=== PATIENT | male | born 1950 | race Hispanic/Latino ===

== ENCOUNTER 2020-09-27 22:06 | Emergency (ER) | payer MEDICARE ==
[~2020-09-27] VITALS: Ht 185.4 cm; Wt 87.1 kg
[2020-09-27 23:14] VITALS: BP 110/73
[2020-09-27 23:14] LABS: CLARITY,URINE SL CLOUDY (CLEAR); COLOR,URINE YELLOW (YELLOW); KETONES,URINE NEGATIVE (NEGATIVE); LEUKOCYTE ESTERASE ,URINE NEGATIVE (NEGATIVE); NITRITE,URINE NEGATIVE (NEGATIVE); PROTEIN,URINE DIPSTICK NEGATIVE (NEGATIVE); URINE UROBILINOGEN 0.2 mg/dL (0.2 - 1)
[2020-09-27 23:24] LABS: BACTERIA,URINE FEW /HPF; EPITHELIAL CELLS,URINE FEW /LPF; RBC,URINE 21-50 /HPF (0-5)
== END 2020-09-27 23:14 | disposition home or self-care (01) ==
LOC: EDBD 22:06 → ER 22:09
DX: R33.9 Retention of urine, unspecified (principal)
CPT/HCPCS: 51700; 81001; 87086; 99282

== ENCOUNTER 2021-02-17 13:47 | Emergency (ER) | payer MEDICARE ==
[~2021-02-17] VITALS: Ht 185.4 cm; Wt 87.1 kg
[2021-02-17 15:09] LABS: CLARITY,URINE HAZY (CLEAR); COLOR,URINE YELLOW (YELLOW); KETONES,URINE NEGATIVE (NEGATIVE); LEUKOCYTE ESTERASE ,URINE LARGE (NEGATIVE); NITRITE,URINE NEGATIVE (NEGATIVE); PROTEIN,URINE DIPSTICK 2+ (NEGATIVE); URINE UROBILINOGEN 0.2 mg/dL (0.2 - 1)
[2021-02-17 15:20] LABS: AMORPHOUS SEDIMENT,URINE FEW (FEW); BACTERIA,URINE MODERATE /HPF; EPITHELIAL CELLS,URINE FEW /LPF; MUCUS,URINE MODERATE (RARE); WBC,URINE (MAN) >50 /HPF (0-5)
== END 2021-02-17 16:04 | disposition home or self-care (01) ==
LOC: ER 14:05
DX: Z46.6 Encounter for fitting and adjustment of urinary device (principal); R33.9 Retention of urine, unspecified; N39.0 Urinary tract infection, site not specified
CPT/HCPCS: 51700; 81001; 87086; 87186; 99282

== ENCOUNTER 2021-05-06 14:26 | Emergency (ER) | payer MEDICARE ==
[~2021-05-06] VITALS: Ht 185.4 cm; Wt 87.1 kg
[2021-05-06 16:25] LABS: CLARITY,URINE CLOUDY (CLEAR); COLOR,URINE YELLOW (YELLOW); KETONES,URINE NEGATIVE (NEGATIVE); LEUKOCYTE ESTERASE ,URINE MODERATE (NEGATIVE); NITRITE,URINE NEGATIVE (NEGATIVE); PROTEIN,URINE DIPSTICK 1+ (NEGATIVE); URINE UROBILINOGEN 0.2 mg/dL (0.2 - 1)
[2021-05-06 16:35] LABS: WBC,URINE (MAN) >50 /HPF (0-5)
[2021-05-06 16:36] LABS: BACTERIA,URINE MANY /HPF; EPITHELIAL CELLS,URINE FEW /LPF; RBC,URINE 21-50 /HPF (0-5)
== END 2021-05-06 17:24 | disposition home or self-care (01) ==
LOC: ER 15:45
DX: N39.0 Urinary tract infection, site not specified (principal); R33.9 Retention of urine, unspecified; Z48.03 Encounter for change or removal of drains; Z46.6 Encounter for fitting and adjustment of urinary device
CPT/HCPCS: 51700; 81001; 87086; 87186; 99283

== ENCOUNTER 2021-06-16 05:57 | Emergency (ER) | payer MEDICARE ==
[~2021-06-16] VITALS: Ht 185.4 cm; Wt 87.1 kg
[2021-06-16 06:48] LABS: CLARITY,URINE TURBID (CLEAR); COLOR,URINE YELLOW (YELLOW); LEUKOCYTE ESTERASE ,URINE LARGE (NEGATIVE); NITRITE,URINE NEGATIVE (NEGATIVE)
[2021-06-16 06:49] LABS: KETONES,URINE NEGATIVE (NEGATIVE); PROTEIN,URINE DIPSTICK 2+ (NEGATIVE); URINE UROBILINOGEN 0.2 mg/dL (0.2 - 1)
[2021-06-16 07:29] LABS: BACTERIA,URINE MANY /HPF; EPITHELIAL CELLS,URINE FEW /LPF; RBC,URINE >50 /HPF (0-5); TRIPLE PHOSPHATE CRYSTAL,UR MODERATE (FEW); WBC,URINE (MAN) >50 /HPF (0-5)
== END 2021-06-16 06:38 | disposition home or self-care (01) ==
LOC: ER 06:01
DX: R33.9 Retention of urine, unspecified (principal); N39.0 Urinary tract infection, site not specified
CPT/HCPCS: 51700; 81001; 87086; 87186; 99283

== ENCOUNTER 2021-07-03 05:07 | Emergency (ER) | payer MEDICARE ==
[~2021-07-03] VITALS: Ht 185.4 cm; Wt 87.1 kg
== END 2021-07-03 06:33 | disposition home or self-care (01) ==
LOC: ER 05:15
DX: R33.9 Retention of urine, unspecified (principal); Z46.6 Encounter for fitting and adjustment of urinary device
CPT/HCPCS: 51700; 99283

== ENCOUNTER 2021-07-03 19:41 | Emergency (ER) | payer MEDICARE ==
[~2021-07-03] VITALS: Ht 185.4 cm; Wt 87.1 kg
== END 2021-07-03 23:00 | disposition home or self-care (01) ==
LOC: ER 19:53
DX: T83.091A Other mechanical complication of indwelling urethral catheter, initial encounter (principal); Y84.6 Urinary catheterization as the cause of abnormal reaction of the patient, or of later complication, without mention of misadventure at the time of the procedure

== ENCOUNTER 2021-07-18 08:42 | Emergency (ER) | payer MEDICARE ==
[~2021-07-18] VITALS: Ht 185.4 cm; Wt 87.1 kg
[2021-07-18 08:59] LABS: BASOPHILS % 0.5 % (0.0-1.0); EOSINOPHILS # (AUTO) 0.1 (0.0-0.4); HEMOGLOBIN 14.2 g/dL (14.0-18.0); LYMPHOCYTES # (AUTO) 1.7 (1.0-3.2); LYMPHOCYTES % 28.9 % (18.0-39.1); MEAN CORPUSCULAR HEMOGLOBIN 29.2 pg (28-32); MEAN CORPUSCULAR HGB CONC 32.3 g/dL (31-35); MEAN CORPUSCULAR VOLUME 90.3 fL (81-99); MONOCYTES # (AUTO) 0.4 (0.2-0.8); MONOCYTES % 6.9 % (4.4-11.3); NEUTROPHILS # (AUTO) 3.6 (2.1-6.9); NEUTROPHILS % 60.7 % (38.7-80.0); PLATELET COUNT 294 x10e3/uL (140-360); RED BLOOD COUNT 4.87 x10e6/uL (4.3-5.7); RED CELL DISTRIBUTION WIDTH 11.8 % (11.7-14.4)
[2021-07-18 09:16] LABS: ALBUMIN 3.6 g/dL (3.5-5.0); ALBUMIN/GLOBULIN RATIO 0.9 (0.8-2.0); ANION GAP 9.4 mmol/L (8-16); CALCIUM 9.4 mg/dL (8.4-10.2); CREATININE, SERUM 0.99 mg/dL (0.72-1.25); POTASSIUM 3.4 mmol/L (3.5-5.1)
[2021-07-18 09:31] LABS: CLARITY,URINE CLOUDY (CLEAR); COLOR,URINE YELLOW (YELLOW); KETONES,URINE NEGATIVE (NEGATIVE); LEUKOCYTE ESTERASE ,URINE LARGE (NEGATIVE); NITRITE,URINE NEGATIVE (NEGATIVE); PROTEIN,URINE DIPSTICK 1+ (NEGATIVE); URINE UROBILINOGEN 0.2 mg/dL (0.2 - 1)
[2021-07-18 09:48] LABS: BACTERIA,URINE MODERATE /HPF; MUCUS,URINE FEW (RARE); RBC,URINE 21-50 /HPF (0-5); WBC,URINE (MAN) 21-50 /HPF (0-5)
[2021-07-18] MEDS ORDERED: IOPAMIDOL 370 MG/ML 200 ML INFUS..BTL INJ ONE (10:19)
[2021-07-18] MEDS ORDERED: SODIUM CHLORIDE 0.9% 250ML 250 ML ONE (10:19)
[2021-07-18] MEDS ORDERED: MEROPENEM 1 GM in SODIUM CHLORIDE 0.9% 100 ML 100 ML IV ONE (11:00)
[2021-07-18] MEDS ORDERED: SODIUM CHLORIDE 0.9% 1000ML 1,000 ML IV ONE (11:15)
[2021-07-18] MEDS ORDERED: MEROPENEM 1 GM in SODIUM CHLORIDE 0.9% 100 ML IV ONE (11:15)
== END 2021-07-18 12:23 | disposition home or self-care (01) ==
LOC: ER 08:56
DX: Z46.6 Encounter for fitting and adjustment of urinary device (principal); R33.9 Retention of urine, unspecified; N39.0 Urinary tract infection, site not specified
CPT/HCPCS: 36415; 51702; 74178; 80053; 81001; 85025; 87086; 87186; 99284; J2185; J7030; J7050 ×2; Q9967; 51700

== ENCOUNTER 2021-08-08 00:24 | Emergency (ER) | payer MEDICARE ==
[~2021-08-08] VITALS: Ht 185.4 cm; Wt 87.1 kg
== END 2021-08-08 01:05 | disposition home or self-care (01) ==
LOC: ER 00:30
DX: Z46.6 Encounter for fitting and adjustment of urinary device (principal); R33.9 Retention of urine, unspecified
CPT/HCPCS: 51700; 87086; 87186; 99282

== ENCOUNTER 2021-09-02 18:58 | Emergency (ER) | payer MEDICARE ==
[~2021-09-02] VITALS: Ht 185.4 cm; Wt 87.1 kg
[2021-09-02 19:35] VITALS: BP 136/88
== END 2021-09-02 19:40 | disposition home or self-care (01) ==
LOC: ER 19:08
DX: Z46.6 Encounter for fitting and adjustment of urinary device (principal); R33.9 Retention of urine, unspecified
CPT/HCPCS: 51700

== ENCOUNTER 2021-09-17 00:05 | Emergency (ER) | payer MEDICARE ==
[~2021-09-17] VITALS: Ht 185.4 cm; Wt 87.1 kg
== END 2021-09-17 01:00 | disposition home or self-care (01) ==
LOC: ER 00:08
DX: Z46.6 Encounter for fitting and adjustment of urinary device (principal); R33.9 Retention of urine, unspecified
CPT/HCPCS: 51700; 99282

== ENCOUNTER 2021-09-30 20:52 | Emergency (ER) | payer MEDICARE ==
[~2021-09-30] VITALS: Ht 185.4 cm; Wt 83.9 kg
[2021-09-30 21:47] VITALS: BP 145/90
[2021-10-05] MEDS ORDERED: VITAMIN D310 MCG PO (09:31)
[2021-10-05] MEDS ORDERED: FINASTERIDE5 MG PO (09:31)
[2021-10-05] MEDS ORDERED: FLOMAX0.4 MG PO (09:31)
== END 2021-09-30 21:48 | disposition home or self-care (01) ==
LOC: ER 21:02
DX: Z46.6 Encounter for fitting and adjustment of urinary device (principal); R33.9 Retention of urine, unspecified; N40.1 Benign prostatic hyperplasia with lower urinary tract symptoms
CPT/HCPCS: 51700; 99282

== ENCOUNTER 2021-10-08 05:59 | Inpatient (IN) | payer MEDICARE ==
[2021-10-05 13:23] LABS: BASOPHILS % 0.5 % (0.0-1.0); EOSINOPHILS # (AUTO) 0.2 (0.0-0.4); EOSINOPHILS % 2.7 % (0.0-6.0); HEMATOCRIT 42.7 % (38.2-49.6); HEMOGLOBIN 14.5 g/dL (14.0-18.0); LYMPHOCYTES # (AUTO) 1.8 (1.0-3.2); LYMPHOCYTES % 33.5 % (18.0-39.1); MEAN CORPUSCULAR HEMOGLOBIN 30.6 pg (28-32); MEAN CORPUSCULAR VOLUME 90.1 fL (81-99); MONOCYTES # (AUTO) 0.4 (0.2-0.8); MONOCYTES % 7.6 % (4.4-11.3); NEUTROPHILS # (AUTO) 3.1 (2.1-6.9); NEUTROPHILS % 55.5 % (38.7-80.0); PLATELET COUNT 219 x10e3/uL (140-360); RED BLOOD COUNT 4.74 x10e6/uL (4.3-5.7); RED CELL DISTRIBUTION WIDTH 12.3 % (11.7-14.4)
[2021-10-05 13:38] LABS: ANION GAP 12.4 mmol/L (8-16); CALCIUM 9.8 mg/dL (8.4-10.2); CREATININE, SERUM 1.1 mg/dL (0.72-1.25); POTASSIUM 4.4 mmol/L (3.5-5.1)
[~2021-10-08] VITALS: Ht 185.4 cm; Wt 83.9 kg
[~2021-10-08 05:59] MED LIST: FINASTERIDE5 MG PO; FLOMAX0.4 MG PO; GENTAMICIN 80MG/NS 100 ML 200 ML IV ONE; PIPERACILLIN/TAZOBACTAM 3.375 GM VIAL ONE; SODIUM CHLORIDE 0.9% 1000ML 1,000 ML ONE; VITAMIN D310 MCG PO
[2021-10-08] MEDS ORDERED: IOPAMIDOL 300MG/ML 50ML INFUS..BTL IV ONE (06:16)
[2021-10-08] MEDS ORDERED: B&O 60MG R/S 60 MG SUPP PR ONE (06:16)
[2021-10-08] MEDS ORDERED: PHENAZOPYRIDINE HCL 100 MG TAB PO PRN (09:30)
[2021-10-08] MEDS ORDERED: ACETAMINOPHEN/CODEINE 300MG - 30MG TAB PO PRN (09:30)
[2021-10-08] MEDS ORDERED: B&O 60MG R/S 60 MG SUPP PR PRN (09:30)
[2021-10-08] MEDS ORDERED: DIPHENHYDRAMINE HCL 25 MG CAP PO PRN (09:30)
[2021-10-08 10:40] LABS: BASOPHILS % 0.2 % (0.0-1.0); EOSINOPHILS % 0.5 % (0.0-6.0); HEMATOCRIT 43.9 % (38.2-49.6); HEMOGLOBIN 14.6 g/dL (14.0-18.0); LYMPHOCYTES # (AUTO) 0.9 (1.0-3.2); LYMPHOCYTES % 11.1 % (18.0-39.1); MEAN CORPUSCULAR HEMOGLOBIN 30.5 pg (28-32); MEAN CORPUSCULAR HGB CONC 33.3 g/dL (31-35); MEAN CORPUSCULAR VOLUME 91.6 fL (81-99); MONOCYTES # (AUTO) 0.1 (0.2-0.8); MONOCYTES % 1.5 % (4.4-11.3); NEUTROPHILS # (AUTO) 7.1 (2.1-6.9); NEUTROPHILS % 86.3 % (38.7-80.0); PLATELET COUNT 215 x10e3/uL (140-360); RED BLOOD COUNT 4.79 x10e6/uL (4.3-5.7); RED CELL DISTRIBUTION WIDTH 12.3 % (11.7-14.4)
[2021-10-08 10:58] LABS: ANION GAP 11.9 mmol/L (8-16); CALCIUM 8.6 mg/dL (8.4-10.2); CREATININE, SERUM 1.06 mg/dL (0.72-1.25); POTASSIUM 4.9 mmol/L (3.5-5.1)
[2021-10-08] MEDS: D5.45%NS/KCL 20MEQ 1,000 ML IV SCH ×3 (12:15→20:01)
[2021-10-08] MEDS ORDERED: DOCUSATE SODIUM 100 MG CAP PO SCH (17:00)
[2021-10-08] MEDS ORDERED: MIDAZOLAM HCL 2 MG/2 ML VIAL ONE (17:48)
[2021-10-08] MEDS ORDERED: FENTANYL CITRATE/PF 100MCG/2 ML INJ ONE (17:48)
[2021-10-08 17:53] VITALS: BP 111/73
[2021-10-08] MEDS ORDERED: GLYCOPYRROLATE INJ 0.2 MG/ML VIAL ONE (19:09)
[2021-10-08] MEDS ORDERED: DEXAMETHASONE SOD PHOS INJ 4 MG/ML SDV ONE (19:09)
[2021-10-08] MEDS ORDERED: LIDOCAINE HCL 2% LOCAL INJ 5 ML SDV VIAL INJ ONE (19:09)
[2021-10-08] MEDS ORDERED: SEVOFLURANE INHAL SOLN 250 ML PEN BTL ONE (19:09)
[2021-10-08] MEDS ORDERED: POVIDONE IODINE 0.05% 0.05 % ML PO ONE (19:09)
[2021-10-08] MEDS ORDERED: PROPOFOL IV EMULSION 10 MG/ML 20 ML VIAL ONE (19:09)
[2021-10-08] MEDS ORDERED: ONDANSETRON HCL INJ 2MG/ML 2ML 2 MG/ML VIAL ONE (19:09)
[2021-10-08 20:00] VITALS: BP 111/73
[2021-10-08 20:14] VITALS: BP 106/74
[2021-10-08] MEDS: DOCUSATE SODIUM 100 MG CAP PO SCH (21:28)
[2021-10-09] VITALS (7 sets, daily range): BP systolic 98–118; BP diastolic 60–73
[2021-10-09] MEDS: D5.45%NS/KCL 20MEQ 1,000 ML IV SCH ×3 (01:30→16:21)
[2021-10-09 05:17] LABS: BASOPHILS % 0.3 % (0.0-1.0); EOSINOPHILS # (AUTO) 0.1 (0.0-0.4); HEMATOCRIT 39.1 % (38.2-49.6); HEMOGLOBIN 13.1 g/dL (14.0-18.0); LYMPHOCYTES # (AUTO) 1.9 (1.0-3.2); LYMPHOCYTES % 18.7 % (18.0-39.1); MEAN CORPUSCULAR HEMOGLOBIN 30.6 pg (28-32); MEAN CORPUSCULAR HGB CONC 33.5 g/dL (31-35); MEAN CORPUSCULAR VOLUME 91.4 fL (81-99); MONOCYTES # (AUTO) 0.9 (0.2-0.8); MONOCYTES % 8.8 % (4.4-11.3); NEUTROPHILS # (AUTO) 7.4 (2.1-6.9); NEUTROPHILS % 70.6 % (38.7-80.0); PLATELET COUNT 198 x10e3/uL (140-360); RED BLOOD COUNT 4.28 x10e6/uL (4.3-5.7); RED CELL DISTRIBUTION WIDTH 12.5 % (11.7-14.4)
[2021-10-09 05:39] LABS: ANION GAP 9.1 mmol/L (8-16); CREATININE, SERUM 1.18 mg/dL (0.72-1.25); POTASSIUM 4.1 mmol/L (3.5-5.1)
[2021-10-09] MEDS: DOCUSATE SODIUM 100 MG CAP PO SCH ×2 (09:18→21:00)
[2021-10-10] VITALS (8 sets, daily range): BP systolic 102–160; BP diastolic 56–70
[2021-10-10] MEDS: D5.45%NS/KCL 20MEQ 1,000 ML IV SCH ×3 (00:16→17:19)
[2021-10-10 05:28] LABS: BASOPHILS % 0.6 % (0.0-1.0); EOSINOPHILS # (AUTO) 0.3 (0.0-0.4); EOSINOPHILS % 3.9 % (0.0-6.0); HEMATOCRIT 34.4 % (38.2-49.6); HEMOGLOBIN 11.5 g/dL (14.0-18.0); LYMPHOCYTES # (AUTO) 2.2 (1.0-3.2); LYMPHOCYTES % 31.5 % (18.0-39.1); MEAN CORPUSCULAR HEMOGLOBIN 30.7 pg (28-32); MEAN CORPUSCULAR HGB CONC 33.4 g/dL (31-35); MEAN CORPUSCULAR VOLUME 91.7 fL (81-99); MONOCYTES # (AUTO) 0.6 (0.2-0.8); MONOCYTES % 8.3 % (4.4-11.3); NEUTROPHILS # (AUTO) 3.9 (2.1-6.9); NEUTROPHILS % 55.4 % (38.7-80.0); PLATELET COUNT 176 x10e3/uL (140-360); RED BLOOD COUNT 3.75 x10e6/uL (4.3-5.7); RED CELL DISTRIBUTION WIDTH 12.6 % (11.7-14.4)
[2021-10-10 05:47] LABS: ANION GAP 11.1 mmol/L (8-16); CALCIUM 7.7 mg/dL (8.4-10.2); CREATININE, SERUM 1.05 mg/dL (0.72-1.25); POTASSIUM 4.1 mmol/L (3.5-5.1)
[2021-10-10] MEDS: DOCUSATE SODIUM 100 MG CAP PO SCH ×2 (08:16→21:00)
[2021-10-11] VITALS: BP 110/65
[2021-10-11] MEDS: D5.45%NS/KCL 20MEQ 1,000 ML IV SCH (01:22)
[2021-10-11 04:00] VITALS: BP 105/65
[2021-10-11 06:36] LABS: BASOPHILS % 0.4 % (0.0-1.0); EOSINOPHILS # (AUTO) 0.3 (0.0-0.4); EOSINOPHILS % 3.9 % (0.0-6.0); HEMATOCRIT 35.1 % (38.2-49.6); HEMOGLOBIN 11.8 g/dL (14.0-18.0); LYMPHOCYTES # (AUTO) 1.9 (1.0-3.2); LYMPHOCYTES % 25.6 % (18.0-39.1); MEAN CORPUSCULAR HEMOGLOBIN 30.5 pg (28-32); MEAN CORPUSCULAR HGB CONC 33.6 g/dL (31-35); MEAN CORPUSCULAR VOLUME 90.7 fL (81-99); MONOCYTES # (AUTO) 0.7 (0.2-0.8); MONOCYTES % 9.4 % (4.4-11.3); NEUTROPHILS # (AUTO) 4.4 (2.1-6.9); NEUTROPHILS % 59.9 % (38.7-80.0); PLATELET COUNT 180 x10e3/uL (140-360); RED BLOOD COUNT 3.87 x10e6/uL (4.3-5.7); RED CELL DISTRIBUTION WIDTH 12.6 % (11.7-14.4)
[2021-10-11 06:57] LABS: ANION GAP 8.9 mmol/L (8-16); CALCIUM 8.3 mg/dL (8.4-10.2); CREATININE, SERUM 1.09 mg/dL (0.72-1.25); POTASSIUM 3.9 mmol/L (3.5-5.1)
[2021-10-11 07:45] VITALS: BP 116/75
[2021-10-11 07:55] VITALS: BP 116/75
== END 2021-10-11 09:20 | disposition home or self-care (01) | DRG 713 ==
LOC: OR 05:59 → PACU V 09:41 → MED/SURG 11:26
PROVIDERS: ADMIT Internal Medicine; ATTEND Internal Medicine
PROC: 0VB08ZX Excision of Prostate, Via Natural or Artificial Opening Endoscopic, Diagnostic (ICD-10-PCS; 2021-10-08)
PROC: BT1B1ZZ Fluoroscopy of Bladder and Urethra using Low Osmolar Contrast (ICD-10-PCS; 2021-10-08)
PROC: 0TCB8ZZ Extirpation of Matter from Bladder, Via Natural or Artificial Opening Endoscopic (ICD-10-PCS; 2021-10-08)
PROC: 0V508ZZ Destruction of Prostate, Via Natural or Artificial Opening Endoscopic (ICD-10-PCS; principal; 2021-10-08 07:18)
PROC: BV49ZZZ Ultrasonography of Prostate and Seminal Vesicles (ICD-10-PCS; 2021-10-08 07:18)
DX: N40.1 Benign prostatic hyperplasia with lower urinary tract symptoms (principal); N13.8 Other obstructive and reflux uropathy; I10 Essential (primary) hypertension; R33.8 Other retention of urine; N35.919 Unspecified urethral stricture, male, unspecified site; N21.0 Calculus in bladder; N32.89 Other specified disorders of bladder; D64.9 Anemia, unspecified
CPT/HCPCS: 36415; 71046; 74420; 76872; 76998; 80048; 83735; 85025; 88300; 88305; 93005; 94799; C1758; J1100; J1580; J2001; J2250; J2405; J2543; J3010; J7030; U0002

== ENCOUNTER 2022-02-21 10:15 | Emergency (ER) | payer MEDICARE ==
[~2022-02-21] VITALS: Ht 185.4 cm; Wt 83.9 kg
[~2022-02-21 10:15] MED LIST changes: -GENTAMICIN 80MG/NS 100 ML 200 ML IV ONE; -PIPERACILLIN/TAZOBACTAM 3.375 GM VIAL ONE; -SODIUM CHLORIDE 0.9% 1000ML 1,000 ML ONE
[2022-02-21 11:34] LABS: CLARITY,URINE TURBID (CLEAR); COLOR,URINE RED (YELLOW); KETONES,URINE 2+ (NEGATIVE); LEUKOCYTE ESTERASE ,URINE LARGE (NEGATIVE); NITRITE,URINE POSITIVE (NEGATIVE); PROTEIN,URINE DIPSTICK >=300 (NEGATIVE); URINE UROBILINOGEN >=8 mg/dL (0.2 - 1)
[2022-02-21 11:35] LABS: BACTERIA,URINE FEW /HPF; EPITHELIAL CELLS,URINE FEW /LPF; RBC,URINE >50 /HPF (0-5); WBC,URINE (MAN) >50 /HPF (0-5)
[2022-02-21] MEDS ORDERED: CEFDINIR300 MG PO (13:30)
== END 2022-02-21 14:02 | disposition home or self-care (01) ==
LOC: ER 10:23
DX: R31.9 Hematuria, unspecified (principal); N39.0 Urinary tract infection, site not specified
CPT/HCPCS: 81001; 99282

== ENCOUNTER 2022-12-19 11:04 | Emergency (ER) | payer MEDICARE, OTHER ==
[~2022-12-19] VITALS: Ht 185.4 cm; Wt 83.9 kg
[~2022-12-19 11:04] MED LIST changes: +CEFDINIR300 MG PO
[2022-12-19 11:05] VITALS: O2SAT 98
[2022-12-19] MEDS ORDERED: CEFDINIR300 MG PO (11:30)
[2022-12-19 11:40] LABS: CLARITY,URINE CLEAR (CLEAR); COLOR,URINE YELLOW (YELLOW); KETONES,URINE NEGATIVE (NEGATIVE); LEUKOCYTE ESTERASE ,URINE NEGATIVE (NEGATIVE); NITRITE,URINE NEGATIVE (NEGATIVE); PROTEIN,URINE DIPSTICK TRACE (NEGATIVE); URINE UROBILINOGEN 0.2 mg/dL (0.2 - 1)
[2022-12-19 11:52] LABS: BACTERIA,URINE FEW /HPF; EPITHELIAL CELLS,URINE RARE /LPF; RBC,URINE 21-50 /HPF (0-5); WBC,URINE (MAN) 0-5 /HPF (0-5)
== END 2022-12-19 11:51 | disposition home or self-care (01) ==
LOC: ER 11:09
DX: R31.9 Hematuria, unspecified (principal)
CPT/HCPCS: 81001; 87086; 99283

== ENCOUNTER → 2023-01-09 | Outpatient (CLI) | payer OTHER ==
[~2023-01-09] MED LIST changes: +IOPAMIDOL 370 MG/ML 100 ML INFUS..BTL INJ ONE; +SODIUM CHLORIDE 0.9% 250ML 250 ML ONE
[2023-01-09 15:58] LABS: CREATININE, SERUM 1.03 mg/dL (0.72-1.25)
== END ==
LOC: CT 15:23
PROVIDERS: ATTEND Urology
DX: R31.21 Asymptomatic microscopic hematuria (principal); N28.1 Cyst of kidney, acquired
CPT/HCPCS: 36415; 74178; 82565; 84520; J7050; Q9967